=== PATIENT | female | born 1980 | race Hispanic/Latino ===

== ENCOUNTER 2019-01-13 20:48 | Emergency (ER) | payer OTHER ==
[2019-01-13 21:17] LABS: BASOPHILS % (AUTO) 0.2 % (0.0-5.0); EOSINOPHILS % (AUTO) 5.9 % (0.0-8.0); HEMATOCRIT 34.3 % (36-48); LYMPHOCYTES % (AUTO) 9.8 % (21.0-51.0); MEAN CORPUSCULAR HEMOGLOBIN 26.5 pg (27.0-33.0); MEAN CORPUSCULAR VOLUME 80.4 fL (79-99); MONOCYTES % (AUTO) 8.4 % (3.0-13.0); NEUTROPHILS % (AUTO) 75.7 % (40.0-77.0); PLATELET COUNT (AUTO) 251 K/uL (130-400); RED BLOOD CELL COUNT(AUTO) 4.26 MIL/uL (4.00-5.50); RED CELL DISTRIBUTION WIDTH 17.3 % (11.0-15.5); WHITE BLOOD COUNT (AUTO) 6.8 K/uL (4.8-10.8)
[2019-01-13 22:05] LABS: RAPID GROUP A STREP NEGATIVE (NEGATIVE)
[2019-01-13 23:14] LABS: APPEARANCE,URINE Clear (CLEAR); BILIRUBIN,URINE Negative (NEGATIVE); COLOR,URINE Yellow (YELLOW); GLUCOSE, URINE (UA) Negative (NEGATIVE); KETONES,URINE Negative (NEGATIVE); LEUKOCYTE ESTERASE ,URINE Trace (NEGATIVE); NITRATE,URINE Negative (NEGATIVE); OCCULT BLOOD,URINE Large (NEGATIVE); PH,URINE 6.5 (5.0-8.0); PROTEIN,URINE Negative (NEGATIVE); UROBILINOGEN,URINE 0.2 mg/dL (0.2-1.0)
[2019-01-13 23:45] LABS: BACTERIA,URINE Few /HPF (None Seen); SQUAMOUS EPITHELIAL CELL,UR Moderate /HPF (0-2)
[2019-01-14] MEDS ORDERED: CEFTRIAXONE SODIUM 1 GM ONE (01:01)
[2019-01-14] MEDS ORDERED: ACETAMINOPHEN 325 MG TAB ONE (01:02)
== END 2019-01-14 01:35 | disposition home or self-care (01) ==
LOC: EDH 20:48
DX: N39.0 Urinary tract infection, site not specified (principal); R21 Rash and other nonspecific skin eruption; R05 Cough; Z98.890 Other specified postprocedural states; Z72.0 Tobacco use
CPT/HCPCS: 36415; 71045; 81001; 83605; 85025; 87088; 87804 ×2; 87880; 93005; 96374; 99284; J0696

== ENCOUNTER 2024-03-04 19:30 | Emergency (ER) | payer OTHER ==
[~2024-03-04] VITALS: Ht 165.1 cm; Wt 74.8 kg
[2024-03-04 19:47] VITALS: BP 104/87; PULSE 111; RESP 20; O2SAT 98
== END 2024-03-04 21:06 | disposition left against medical advice (07) ==
LOC: EDH 19:30
DX: Z04.6 Encounter for general psychiatric examination, requested by authority (principal); Z90.49 Acquired absence of other specified parts of digestive tract

== ENCOUNTER 2024-08-06 03:18 | Emergency (ER) | payer BC ==
[~2024-08-06] VITALS: Ht 165.1 cm; Wt 81.6 kg
[2024-08-06] MEDS: OCTYL 2-CYANOACRYLATE 1 EACH TP SCH (03:36)
[2024-08-06] MEDS: OCTYL 2-CYANOACRYLATE 1 EACH TP ONE (03:38)
--- NOTE | 2024-08-06 03:45 | ERN ---
General Chief Complaint: Laceration/Avulsion Stated Complaint: LACERATION R EYEBROW S/P FALL Time Seen by MD: 03:22 History of Present Illness Initial Comments 44F BIB EMS from home for a fall. Patient endorses "partying" tonight. She lost her balance and fell to the ground. No LOC. Patient has a bruise to the R eyebrow. No other injuries. GCS 15. Stable VS w/ EMS. Historian: patient Med hx: TIA, MS, substance abuse Allergies: Coded Allergies: No Known Allergies (Unverified Allergy, Unknown, 03/04/24) Past Medical History Past Medical History: CVA, MS Past Surgical History: Appendectomy ROS Dictation Constitutional: Negative for fever,chills, and weight loss Eyes: Negative for injury, pain,redness, and discharge ENT: Negative for injury,pain or swelling Cardiovascular: Negative for chest pain, palpitations, and edema Respiratory: Negative for shortness of breath, cough, and wheezing, Abdomen/GI: Negative for abdominal pain, nausea, vomiting, diarrhea, and constipation Back: Negative for injury and pain : Negative for injury, bleeding and discharge MS/Extremity: Negative for injury and deformity Skin: Negative for rash, and discoloration Neuro: SAINI Psych: Agitated, clinically intoxicated Physical Exam Physical Exam Dictation General: awake, alert, NAD Head/Face: Normocephalic, 2 cm Laceration to R eyebrow. Eyes: PERRL, EOMI, vision at baseline ENT: oral cavity clear, TMs clear, no signs of infection Neck: Trachea midline, supple, no nuchal rigidity Cardiovascular: RRR, normal S1/S2, No MRGs, no JVD Respiratory: CTAB, no respiratory distress, No rales or wheezes Abdomen: Soft, non-tender, non-distended, normal bowel sounds, no guarding or r ebound. Skin: Warm, dry, normal turgor, no rash MS/Extremity: Pulses equal, no cyanosis, neurovascular intact, FROM Neuro: COAx4, GCS 15, strength 5/5, CN 2-12 intact, normal cerebellar exam, normal gait, Psych: Agitated MDM CC: head injury, fall, clinical intoxication Historian: patient Limitations by social determinates of health: none Initial concern for TBI, brain bleed, intoxication, substance abuse, significant life threatening trauma. Will get imaging. VSS PE: 2cm lac to R eyebrow, PERRL, roll picker intact. Clinically intoxicated and agitated. No labs indicated Wound cleaned CT head without contrast unremarkable per my read Wound repaired, no complications. WIll DC to PCP f/u. ED Course Orders Procedure Category Date Status Time Ct Head/Brain W/O CT 08/06/24 Resulted Contrast 03:22 Dermabond (Dermabond) PHA 08/06/24 Complete 03:32 Dermabond (Dermabond) PHA 08/06/24 Complete 04:00 Current Medications Medications (Trade) Dose Ordered Sig/Sharri Route PRN Reason Start Time Stop Time Status Last Admin Dose Admin Octyl Cyanoacrylate (Dermabond) 1 each ONCE TP 08/06/24 04:00 08/06/24 04:50 DC Octyl Cyanoacrylate (Dermabond) 1 each STK-MED ONCE TP 08/06/24 03:32 08/06/24 03:32 DC 08/06/24 03:38 Vital Signs Date Time Temp Pulse Resp B/P (MAP) Pulse Ox O2 Delivery O2 Flow Rate FiO2 08/06/24 04:27 98.8 96 18 132/80 100 Room Air* 0 21 08/06/24 03:52 96 18 138/84 98 Room Air* 0 21 08/06/24 03:19 99.0 58 17 146/97 100 Room Air 0 Laceration/Wound Repair Laceration/Wound Repair : Wound Location: face (R eyebrow) Wound's Depth, Shape: superficial Wound Explored: clean Betadine Prep?: Yes Wound Repaired With: Steri-strips Number of Sutures: 3 DX & DISP Disposition: Discharge Departure Impression: Primary Impression: Head injury Additional Impression: Eyebrow laceration Condition: Stable Additional Instructions: You have a right eyebrow laceration that was repaired with skin glue & steristrips. The CT scan of your brain is normal. Keep the wound clean. Monitor for infection. Keep the steristrips and glue on for at least 10 days. Follow up with your primary doctor this week for a wound check. Referrals: SELF,REFERRAL (PCP) TIMUR ROMANO DO Aug 06, 2024 03:45
[2024-08-06 04:27] VITALS: BP 132/80; PULSE 96; RESP 18; TEMP 98.7; O2SAT 100
--- NOTE | 2024-08-06 08:26 | HMCIMG ---
Exam Type: CT HEAD/BRAIN W/O CONTRAST Clinical Information: head injury Comparison: None CT Dose Index (CTDI): 57.33 mGy Dose Length Product (DLP): 956.79 total mGy-cm Findings: The examination is unremarkable. Starks-white matter junction is preserved. No intra or extra axial lesions or fluid collections are seen. Specifically, starks and white matter are normal in signal characteristics with normal caliber of ventricles and periventricular cisterns with no evidence of intra or or extra-axial hemorrhage, lacunar infarct, or major territorial infarct, mass, or other abnormality. There are no infarcts. There are no hemorrhages. Periventricular white matter locations are preserved. The orbital contents and structures of the posterior fossa are intact. Impression: Normal CT of the head. This study was performed using dose reduction techniques to include automated exposure control and/or adjustment of the mA and/or kV according to patient size.
== END 2024-08-06 04:50 | disposition home or self-care (01) ==
LOC: EDH 03:18
DX: S01.111A Laceration without foreign body of right eyelid and periocular area, initial encounter (principal); S09.8XXA Other specified injuries of head, initial encounter; I25.2 Old myocardial infarction; Z86.73 Personal history of transient ischemic attack (TIA), and cerebral infarction without residual deficits; Z90.49 Acquired absence of other specified parts of digestive tract; W18.39XA Other fall on same level, initial encounter; Y93.89 Activity, other specified; Y92.89 Other specified places as the place of occurrence of the external cause; Y99.8 Other external cause status
CPT/HCPCS: 12011; 70450